=== PATIENT | female | born 1975 | race Two or more races ===

== ENCOUNTER 2018-10-03 10:46 | Outpatient (CLI) | payer OTHER | END 2018-10-03 10:53 | disposition home or self-care (01) | LOC: MAMO-SONO 10:46 | DX: Z12.31 Encounter for screening mammogram for malignant neoplasm of breast (principal); N60.11 Diffuse cystic mastopathy of right breast; N60.12 Diffuse cystic mastopathy of left breast ==

== ENCOUNTER → 2019-10-10 | Outpatient (CLI) | payer OTHER | END | disposition home or self-care (01) | LOC: MAMO-SONO 12:22 | DX: Z12.31 Encounter for screening mammogram for malignant neoplasm of breast (principal); Z87.898 Personal history of other specified conditions; N60.11 Diffuse cystic mastopathy of right breast; N60.12 Diffuse cystic mastopathy of left breast ==

== ENCOUNTER 2021-06-15 10:29 | Outpatient (CLI) | payer OTHER | END 2021-06-15 10:36 | disposition home or self-care (01) | LOC: MAMO-SONO 10:29 | PROVIDERS: ATTEND Specialist | DX: N60.11 Diffuse cystic mastopathy of right breast (principal); N60.12 Diffuse cystic mastopathy of left breast; Z12.31 Encounter for screening mammogram for malignant neoplasm of breast; N64.59 Other signs and symptoms in breast; Z87.898 Personal history of other specified conditions ==

== ENCOUNTER 2022-04-28 07:35 | Outpatient (CLI) | payer OTHER | END 2022-04-28 07:41 | disposition home or self-care (01) | LOC: LAB 07:35 | DX: Z01.419 Encounter for gynecological examination (general) (routine) without abnormal findings (principal); N91.4 Secondary oligomenorrhea ==

== ENCOUNTER 2022-06-28 09:03 | Outpatient (CLI) | payer OTHER | END 2022-06-28 09:15 | disposition home or self-care (01) | LOC: MAMO-SONO 09:03 | PROVIDERS: ATTEND Family Medicine | DX: Z12.31 Encounter for screening mammogram for malignant neoplasm of breast (principal); N60.11 Diffuse cystic mastopathy of right breast; N60.12 Diffuse cystic mastopathy of left breast ==

== ENCOUNTER 2023-09-14 07:28 | Outpatient (CLI) | payer OTHER | END 2023-09-14 07:39 | disposition home or self-care (01) | LOC: MAMO-SONO 07:28 | PROVIDERS: ATTEND Family Medicine | DX: R10.10 Upper abdominal pain, unspecified (principal); N60.11 Diffuse cystic mastopathy of right breast; N60.12 Diffuse cystic mastopathy of left breast; Z12.31 Encounter for screening mammogram for malignant neoplasm of breast ==

== ENCOUNTER 2024-09-18 08:01 | Outpatient (CLI) | payer OTHER | END 2024-09-18 08:12 | disposition home or self-care (01) | LOC: MAMO-SONO 08:01 | PROVIDERS: ATTEND Family Medicine | DX: N60.11 Diffuse cystic mastopathy of right breast (principal); N60.12 Diffuse cystic mastopathy of left breast; Z12.39 Encounter for other screening for malignant neoplasm of breast; Z12.31 Encounter for screening mammogram for malignant neoplasm of breast ==